=== PATIENT | male | born 1975 | race African-American/Black ===

== ENCOUNTER 2016-12-05 19:46 | Emergency (ER) | payer SELFPAY ==
[~2016-12-05] VITALS: Ht 188 cm; Wt 81.8 kg
[~2016-12-05 19:46] MED LIST: BENADRYL25 MG PO
[2016-12-05 20:24] LABS: HEMATOCRIT 41.4 % (38.0-50.0); MCH 27.9 PG (29.0-34.0); MCHC 32.6 G/DL (30.0-36.0); MCV 85.5 FL (86-99); MEAN PLAT.VOLUME 9.6 uM^3 (9.0-12.4); PLATELET COUNT 258 K/uL (156-360); RBC DIS.WIDTH-CV 13.9 % (11.8-14.6); RBC DIS.WIDTH-SD 43.7 % (39-53); RED BLOOD COUNT 4.84 M/uL (4.00-5.50); WHITE BLOOD COUNT 7.9 K/uL (4.1-10.2)
[2016-12-05 20:32] LABS: CHLORIDE 98 mEq/L (99-109); POTASSIUM 4.3 mEq/L (3.7-5.4); SODIUM 136 mEq/L (136-147)
[2016-12-05 20:34] LABS: GLUCOSE 82 mg/dL (70-99)
[2016-12-05 20:35] LABS: ANION GAP 12 MEQ/L (2-14)
[2016-12-05 20:37] LABS: SERUM ETHYL ALCOHOL 115 mg/dL
[2016-12-05 20:38] LABS: GFR ESTIMATE (CALCULATED) 50 mL/min/
[2016-12-05 20:40] LABS: UREA NITROGEN (BUN) 19 mg/dL (9-23)
[2016-12-05 20:41] LABS: SALICYLATE < 5.0 MG/DL (15-30)
[2016-12-05 21:03] LABS: ADD MEDTOX COMMENT Y; AMPHETAMINE NEGATIVE (500 ng/mL); BARBITURATES NEGATIVE (200 ng/mL); BENZODIAZEPINES NEGATIVE (150 ng/mL); COCAINE PRESUMPTIVE POSITIVE (150 ng/mL); INTERNAL CONTROLS VALID? YES; METHADONE NEGATIVE (200 ng/mL); METHAMPHETAMINE NEGATIVE (500 ng/mL); OPIATES (MORPHINE) NEGATIVE (100 ng/mL); OXYCODONE NEGATIVE (100 ng/mL); PHENCYCLIDINE NEGATIVE (25 ng/mL); PROPOXYPHENE NEGATIVE (300 ng/mL); THC CANNABINOIDS NEGATIVE (50 ng/mL); TRICYCLIC ANTIDEPRESSANTS NEGATIVE (300 ng/mL)
[2016-12-05 22:28] VITALS: BP 122/67
== END 2016-12-05 22:30 | disposition home or self-care (01) ==
LOC: EME 19:46
PROVIDERS: Emergency Medicine
DX: F32.9 Major depressive disorder, single episode, unspecified (principal); F17.200 Nicotine dependence, unspecified, uncomplicated; F14.20 Cocaine dependence, uncomplicated
CPT/HCPCS: 80048; 84999; 85027; 90839; 99281; 99283; G0480